=== PATIENT | female | born 1985 | race Caucasian/White ===

== ENCOUNTER 2020-01-27 15:30 | Emergency (ER) | payer OTHER ==
[2020-01-27 15:43] VITALS: BP 110/73; PULSE 102; TEMP 98.5; BMI 25.9
--- OUTSIDE RECORDS SUMMARY | 2020-01-27 15:45 | XMS ---
:1985 Author Organization [facility] Support Name Relationship Address Phone UNK Unavailable Unavailable Unavailable Re-disclosure Warning The records that you are about to access may contain information from federally- assisted alcohol or drug abuse programs. If such information is present, then the following federally mandated warning applies: This information has been disclosed to you from records protected by federal confidentiality rules (42 CFR part 2). The federal rules prohibit you from making any further disclosure of this information unless further disclosure is expressly permitted by the written consent of the person to whom it pertains or as otherwise permitted by 42 CFR part 2. A general authorization for the release of medical or other information is NOT sufficient for this purpose. The Federal rules restrict any use of the information to criminally investigate or prosecute any alcohol or drug abuse patient.The records that you are about to access may contain highly sensitive health information, the redisclosure of which is protected by Article 27-F of the [facility] Public Health law. If you continue you may haveaccess to information: Regarding HIV / AIDS; Provided by facilities licensed or operated by the [facility] Office of Mental Health; or Provided by the [facility] Office for People With Developmental Disabilities. If such information is present, then the following [facility] mandated warning applies: This information has been disclosed to you from confidential records which are protected by state law. State law prohibits you from making any further disclosure of this information without the specific written consent of the person to whom it pertains, or as otherwise permitted by law. Any unauthorized further disclosure in violation of state law may result in a fine or retirement sentence or both. A general authorization for the release of medical or other information is NOT sufficient authorization for further disclosure. Insurance Providers Payer name Policy type Policy ID Covered Covered green party's Policy P jeovany / Coverage green party ID relationship to [facility] type [facility] SELF PAY SP INSURANCE
--- NOTE | 2020-01-27 15:48 | PDOC ---
History of Present Illness - General Chief Complaint: Foreign Body (FB) Stated Complaint: RINGER STUCK ON FINGER Time Seen by Provider: 01/27/20 15:40 History Source: Patient Exam Limitations: No Limitations - History of Present Illness Initial Comments: 01/27/20 15:49 34y F 18weeks presenting to ER with for engagement ring and wedding band being stuck on L ring finger. Pt sleeps with ring on. Tried pulling off ring and using ice water but it did not work. Endorses pain to the tip of the ring finger and swelling. Ring made of ethan gold. Pt asking for the ring to be cut. Past History - Medical History Allergies/Adverse Reactions: Allergies Allergy/AdvReac Type Severity Reaction Status Date / Time fluconazole [From Diflucan] Allergy Verified 01/27/20 15:43 Home Medications: Ambulatory Orders 54/Iron/Folic AC/Omg3 1 tab 01/27/20 COPD: No Other medical history: 18 WEEKS - Reproductive History Is Patient Now?: Yes - Immunization History Immunization Up to Date: Yes - Psycho-Social/Smoking History Smoking History: Never smoked Have you smoked in the past 12 months: No Information on smoking cessation initiated: No - Substance Abuse Hx (Audit-C & DAST Scrn) How often the patient has a drink containing alcohol: Never Score: In Men: 4 or > Positive; In Women: 3 or > Positive: 0 Screen Result (Pos requires Nsg. Audit-10AR): Negative In the last yr the pt used illegal drug/Rx for NonMed reason: No Score: Yes response is considered Positive: 0 Screen Result (Positive result requires Nsg. DAST-10): Negative Review of Systems - Review of Systems Constitutional: No: Symptoms Reported HEENTM: No: Symptoms Reported Respiratory: No: Symptoms reported Cardiac (ROS): No: Symptoms Reported ABD/GI: No: Symptoms Reported : No: Symptoms Reported Musculoskeletal: Yes: See HPI Integumentary: Yes: See HPI Neurological: Yes: See HPI *Physical Exam - Vital Signs Last Vital Signs Temp Pulse Resp BP Pulse Ox 98.5 F 102 H 18 110/73 98 01/27/20 15:34 01/27/20 15:34 01/27/20 15:34 01/27/20 15:34 01/27/20 15:34 - Physical Exam General Appearance: Yes: Nourished, Appropriately Dressed, Mild Distress HEENT: positive: EOMI Neck: positive: Trachea midline Comments:: 01/27/20 16:23 radial pulses 2+ Musculoskeletal: negative: Decreased Range of Motion Extremity: positive: Other (L ring finger with wedding band and egagement ring. swelling of finger distal to rings. normal cap refill, ) Integumentary: positive: Normal Color, Dry, Warm. negative: Cyanotic, Mottled, Pale, Cold, Ecchymosis Neurologic: positive: assessment expert II-XII NML intact, Fully Oriented, Alert, Normal Mood/Affect, Normal Response, Motor Strength 08/12 Medical Decision Making - Medical Decision Making 01/27/20 15:50 34y F presenting to ER for ring removal. pt is anxious appearing L ring finger is swollen proximally, normal sensation. ring removed with Raptor grace. will dc home. Discharge - Discharge Information Problems reviewed: Yes Clinical Impression/Diagnosis: Tight ring on finger Condition: Improved Disposition: HOME - Admission No - Follow up/Referral - Patient Discharge Instructions Patient Printed Discharge Instructions: DI for Finger Sprain Additional Instructions: Your ring was removed. Come back to the ER if the swelling gets worse, if you have numbness in the finger or if any new or concerning symptom develops. Thank you - Post Discharge Activity
--- NOTE | 2020-01-27 15:57 | PDOC ---
Attending Attestation - Resident Resident Name: Diana Suarez - ED Attending Attestation I have performed the following: I have examined & evaluated the patient, The case was reviewed & discussed with the resident, I agree w/resident's findings & plan - HPI HPI: 01/27/20 15:48 34 YOF female presenting with left ring stuck on finger, with pain and swelling. she tried ice, pulling and tugging without relief. pain at tip of finger no numbness, tingling or weakness. very anxious - Physicial Exam PE: 01/27/20 15:49 General: very anxious. tearful. Vascular: 2+ radialis pulses symmetric and equal. 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 sensation grossly intact in median/radial/ulnar distribution. MSK: soft compartments, Cap refill <2 sec. 2+ radialis pulses bilaterally and symmetric. FDP/FDS intact. no joint tenderness. FROM. left base of ring finger/prox phalange with swelling and tight ring Skin: color normal color, warm and well perfused. - Medical Decision Making 01/27/20 15:50 Vital Signs Temp Pulse Resp BP Pulse Ox 98.5 F 102 H 18 110/73 98 01/27/20 15:34 01/27/20 15:34 01/27/20 15:34 01/27/20 15:34 01/27/20 15:34 vital Signs reviewed, mild tachycardia likely due to anxiety. Patient is very anxious. Neurovascularly intact Tight ring on her left ring finger, ring cutter was applied, object was removed without difficulty. Postprocedure neurovascularly intact. Patient feels much better Discharge in stable condition, continue to ice the area to reduce the swelling, OTC analgesia as needed including Tylenol. Return precautions given 01/27/20 15:50 Discharge - Discharge Information Problems reviewed: Yes Clinical Impression/Diagnosis: Tight ring on finger Condition: Improved Disposition: HOME - Admission No - Follow up/Referral - Patient Discharge Instructions Patient Printed Discharge Instructions: DI for Finger Sprain - Post Discharge Activity
== END 2020-01-27 15:54 | disposition home or self-care (01) ==
LOC: FER 15:30
DX: S60.455A Superficial foreign body of left ring finger, initial encounter (principal)
CPT/HCPCS: 99281-25